=== PATIENT | male | born 1940 | race Caucasian/White ===

== ENCOUNTER → 2017-10-25 | Outpatient (CLI) | payer MEDICARE, BC ==
--- NOTE | 2017-10-25 13:11 | US ---
EXAMINATION TYPE: US duplex aorta DATE OF EXAM: 10/25/2017 COMPARISON: NONE CLINICAL HISTORY: Z13.9 encounter for screening, unspecified; controlled HTN per patient EXAM MEASUREMENTS: Abdominal Aorta: Proximal: 2.6cm A/P Mid: 2.1cm A/P Distal: 2.3cm A/P Bifurcation: 1.4c A/P Right SHOSHANA and 1.1cm A/ P Left SHOSHANA Intimal wall thickening is noted throughout aorta. Aorta is minimally obscured by overlying bowel gas and technically limited by large body habitus at WT 245lbs and HT 5'10". Slightly suboptimal study due to patient's body habitus and overlying bowel gas. Visualized portion o f aorta shows no greater than 3 cm aneurysmal change. IMPRESSION: As above.
== END | disposition home or self-care (01) ==
LOC: RADUSWWP 11:34
PROVIDERS: ATTEND Family Medicine
DX: I71.4 Abdominal aortic aneurysm, without rupture (principal)
CPT/HCPCS: 93979